=== PATIENT | male | born 1955 | race Hispanic/Latino ===

== ENCOUNTER 2017-11-19 21:31 | Inpatient (IN) | payer MEDICARE ==
[~2017-11-19] VITALS: Ht 160 cm; Wt 64.2 kg
[~2017-11-19 21:31] MED LIST: ACETAMINOPHEN325 M1 PO; ASPIRIN81 MG PO; CALAN SR240 MG PO; GLUCAGON EMERGEN1 MG PO; HUMALOG100 UNIT/3; Insulin Detemir SQ; Insulin Lispro SQ; LANTUS 3ML100 UNITS/; LEVETIRACETAM500 MG PO; LEVOTHYROXINE50 MCG PO; NYSTATIN100000 UNI PO; PANTOPRAZOLE SO40 MG PO; PRAVASTATIN SOD40 MG PO; SUCRALFATE1 GM PO
--- OUTSIDE RECORDS SUMMARY | 2017-11-19 21:34 | XMS REPORT ---
Author Author [facility] Address Unknown Phone Unavailable Care Team Providers Care Cash Manager Name Role Phone LUKAS STAUFFER Unavailable Unavailable Problems This patient has no known problems. Allergies, Adverse Reactions, Alerts This patient has no known allergies or adverse reactions. Medications This patient has no known medications. Results Test Description Test Time Test Comments Text Results Atomic Results Result Comments CHEST XRAY LINE PLACEMENT [place] [address] Patient Name: KENDY ROMO MR #: [id number] : 1955 Age/Sex: 62/M Req #: [id number] [facility] Physician: LUKAS STAUFFER MD Ordered by: LUKAS STAUFFER MD Report #: [id number] Location: [facility] Room/Bed: [facility] ___ Procedure: [id number] DX/CHEST XRAY LINE PLACEMENT Exam Date: 06/11/17 Exam Time: 1610 REPORT STATUS: Signed EXAM: XR CHEST 1 VIEW DATE: 06/11/2017 3:59 PM INDICATION: Line placement COMPARISON: 06/09/2017 FINDINGS: Lines and Tubes: Right PICC with tip overlying SVC. Heart and Mediastinum: Stable sternotomy wires. No cardiomegaly. Lungs and Pleura: Basilar atelectasis. Low lung volumes. No pneumothorax. Bones and Soft Tissues: No acute findings. IMPRESSION: 1. Right PICC placement. Signed by: Dr. Stanley Aiken MD on 06/11/2017 4:24 PM Dictated By: STANLEY AIKEN MD 23 Transcribed By: BETINA on 06/11/171623 COPY TO: LUKAS STAUFFER MD CHEST SINGLE (PORTABLE) [place] [address] Patient Name: KENDY ROMO MR #: [id number] : 1955 Age/Sex: 62/M Req #: [id number] Adm Physician: Ordered by: ALEN DELGADO MD Report # : [id number] Location: ER Room/Bed: Procedure: [id number] DX/CHEST SINGLE (PORTABLE) Exam Date: 06/09/17 Exam Time: 1652 REPORT STATUS: Signed PROCEDURE: A single AP view of the chest. COMPARISON: None. INDICATIONS: weakness, altered mental status FINDINGS: Lines/tubes: None. Lungs: The lungs are well inflated without mass or infiltrate. The pulmonary vascular markings are normal. Heart and mediastinum: The heart is normal in size. There are postoperative changes of the mediastinum with clips at aortic arch. Pleura: No pleural effusions, pleural thickening, or pleural-based mass. Bones: Median sternotomy wires are intact. There is no focal osseous lesions. IMPRESSION: No acute cardiopulmonary process. Dictated by: Miguel Craven M.D. on 06/09/2017 at 17:26 Electronically approved by: Miguel Craven M.D. on 06/09/2017 at 17:26 Dictated By: MIGUEL CRAVEN MD [id number] Transcribed By: CULLEN on 06/09/17 1726 COPY TO: ALEN DELGADO MD CT BRAIN WO [place] [address] Patient Name: KENDY ROMO MR #: [id number] : 1955 Age/Sex: 62/M Req #: [id number] Adm Physician: LUKAS STAUFFER MD Ordered by: ALEN DELGADO MD Report #: [id number] Location: [facility] Room/Bed: [place] [address] __ Procedure: [id number] CT/CT BRAIN WO Exam Date: 06/09/17 Exam Time: 1652 REPORT STATUS: Signed History:62-year-old male with weakness, acute encephalopathy Comparison studies:None Technique: Axial images were obtained from the skull base to the vertex. Coronal and sagittal images reconstructed from the axial data. Intravenous contrast: None Suboptimal evaluation due to streak artifacts particularly at the level of skull base and posterior fossa. Findings: Scalp/skull: No abnormalities. Extra-axial spaces: No masses. No fluid collections. Brain sulci: Moderately prominent. Ventricles: Mild compensatory dilatation. No hydrocephalus. Parenchyma: Age- indeterminate hypodensity involving the right inferior mesial lobe (series 2 image 4). Scattered hypodensities in the supratentorial white matter are small vessel ischemic changes. Old lacunar infarcts in the right subinsular region, the left lundberg radiata, left putamen, left thalamus. Sellar/suprasellar region: No abnormalities. Craniocervical junction: Patent foramen magnum. No Chiari one malformation. Incidental findings: Atherosclerotic calcifications in the carotid siphons . Mild ectasia of the basilar artery. Impression: Age-indeterminate insult in the right inferior mesial temporal lobe, favored to be chronic. Chronic findings: 1. Moderate generalized volume loss. 2. Old lacunar infarcts in the right subinsular region, left lundberg radiata, left putamen and left thalamus. Findings discussed with Dr. Cr via telephone at 530pm 06/09/17. A preliminary report was given by neuroradiology fellow at 5:45 PM on 2016. Signed by: Dr. Rupal Feliciano M.D. on 06/09/2017 8:02 PM Dictated By: RUPAL FELICIANO MD 01 Transcribed By: BETINA on 06/09/172001 COPY TO: ALEN DELGADO MD
[2017-11-19] MEDS ORDERED: SODIUM CHLORIDE 0.9% 1000ML 1,000 ML IV STA (22:17)
[2017-11-19 22:29] LABS: ABG HCO3 2 mmol/L (23-28); ABG PCO2 10 mmHg (41-51); ABG PH 6.99 (7.31-7.41); ABG PO2 151 mmHg (80-105)
[2017-11-19] MEDS ORDERED: SODIUM BICARBONATE 8.4% INJ 50 ML SYR IV STA (22:57)
[2017-11-19] MEDS ORDERED: INSULIN REGULAR, HUMAN 100 UNIT/1 ML 3ML VIAL IV STA (22:58)
[2017-11-19 22:59] LABS: BASOPHILS % 0.5 % (0.0-1.0); EOSINOPHILS % 0.1 % (0.0-6.0); HEMATOCRIT 29.8 % (38.2-49.6); HEMOGLOBIN 9.1 g/dL (14.0-18.0); LYMPHOCYTES # (AUTO) 0.9 (1.0-3.2); LYMPHOCYTES % 11.7 % (18.0-39.1); MEAN CORPUSCULAR HEMOGLOBIN 31.3 pg (28-32); MEAN CORPUSCULAR HGB CONC 30.5 g/dL (31-35); MEAN CORPUSCULAR VOLUME 102.4 fL (81-99); MONOCYTES # (AUTO) 0.9 (0.2-0.8); MONOCYTES % 12.5 % (4.4-11.3); NEUTROPHILS # (AUTO) 5.4 (2.1-6.9); NEUTROPHILS % 73.6 % (38.7-80.0); PLATELET COUNT 252 x10e3/uL (140-360); RED BLOOD COUNT 2.91 x10e6/uL (4.3-5.7)
[2017-11-19] MEDS: DEXTROSE 5%/0.45% SOD CHL 1,000 ML IV SCH (23:01)
[2017-11-19] MEDS ORDERED: SODIUM BICARBONATE 8.4% SYRING 100 ML ONE (23:06)
[2017-11-19] MEDS ORDERED: SODIUM CHLORIDE 0.9% 100 ML ONE (23:06)
[2017-11-19] MEDS ORDERED: INSULIN REGULAR, HUMAN 100 UNIT/1 ML 3ML VIAL ONE (23:06)
[2017-11-19 23:08] LABS: INR 1.18; PROTHROMBIN TIME 14.1 seconds (11.9-14.5)
[2017-11-19 23:09] LABS: PARTIAL THROMBOPLASTIN TIME 29.7 seconds (23.8-35.5)
--- NOTE | 2017-11-19 23:12 | Diagnostic Imaging Report ---
CHEST SINGLE (PORTABLE), 11/19/2017 10:44 PM Technique: CHEST SINGLE (PORTABLE) Comparison: 06/11/2017 Clinical history: \S\POST RIGHT SC CENTRAL LINE \[id number] \S\[id number] Findings: Stable appearance of the heart, mediastinum, lungs and pleural spaces status post median sternotomy. Broken superior sternotomy wire. Impression: 1. Lines/Tubes: Right central venous catheter tip overlies the cavoatrial junction. 2. No acute abnormality. No pneumothorax. Signed by: Dr Keely Barron MD on 11/19/2017 11:09 PM
[2017-11-19] MEDS ORDERED: SODIUM BICARBONATE 8.4% SYRING 50 ML ONE (23:13)
[2017-11-19] MEDS ORDERED: INSULIN DETEMIR 100 UNIT/ML PEN SQ PRN (23:15)
[2017-11-19] MEDS ORDERED: POTASSIUM CHLORIDE 20MEQ/100ML 200 ML IV PRN (23:15)
[2017-11-19] MEDS ORDERED: INSULIN REGULAR, HUMAN 3ML VL 1 UNIT in SODIUM CHLORIDE 0.9% 100 ML IV SCH ×2 (23:15)
[2017-11-19 23:19] LABS: ALANINE AMINOTRANSFERASE 30 IU/L (0-55); ALBUMIN 3.4 g/dL (3.5-5.0); ALBUMIN/GLOBULIN RATIO 1.3 (0.8-2.0); ALKALINE PHOSPHATASE 164 IU/L (40-150); BLOOD UREA NITROGEN 41 mg/dL (7-26); BUN/CREATININE RATIO 15 (6-25); CALCIUM 8.8 mg/dL (8.4-10.2); CHLORIDE 96 mmol/L (98-107); CREATINE KINASE 60 IU/L (30-200); CREATININE, SERUM 2.81 mg/dL (0.72-1.25); EST GLOMERULAR FILTRATION RATE 23 ML/MIN (60-); MAGNESIUM 1.8 MG/DL (1.3-2.1); SODIUM 121 mmol/L (136-145)
[2017-11-19] MEDS ORDERED: VANCOMYCIN 1GM/NS 250 ML 250 ML IV STA (23:20)
[2017-11-19 23:23] LABS: ANION GAP 27.1 mmol/L (8-16)
[2017-11-19 23:26] LABS: CARBON DIOXIDE < 5 mmol/L (22-29); POTASSIUM 7.1 mmol/L (3.5-5.1)
[2017-11-19] MEDS: CEFEPIME HCL 2 GM VIAL IV SCH (23:40)
[2017-11-19 23:41] LABS: GLUCOSE 949 mg/dL (74-118)
[2017-11-19] MEDS ORDERED: NOREPINEPHRINE INJ 4MG/4ML 8 MG in DEXTROSE 5% 250ML 250 ML IV PRN (23:45)
[2017-11-20] VITALS (56 sets, daily range): BP systolic 67–136; BP diastolic 42–132
[2017-11-20] MEDS ORDERED: PROMETHAZINE HCL (IM) 25 MG/ML VIAL IV PRN (00:30)
[2017-11-20] MEDS ORDERED: MORPHINE SULFATE 2 MG/ML SYR IV PRN (00:30)
[2017-11-20] MEDS ORDERED: FAMOTIDINE 20 MG/2 ML VIAL IV SCH (00:30)
[2017-11-20] MEDS: SODIUM CHLORIDE 0.9% 1000ML 1,000 ML IV SCH ×4 (01:00→22:45)
[2017-11-20 01:54] LABS: BILIRUBIN,URINE NEGATIVE (NEGATIVE); CLARITY,URINE CLEAR (CLEAR); COLOR,URINE YELLOW (YELLOW); KETONES,URINE 2+ (NEGATIVE); LEUKOCYTE ESTERASE ,URINE NEGATIVE (NEGATIVE); NITRITE,URINE NEGATIVE (NEGATIVE); PROTEIN,URINE DIPSTICK NEGATIVE (NEGATIVE); URINE UROBILINOGEN 0.2 mg/dL (0.2 - 1)
[2017-11-20 02:00] LABS: AMORPHOUS SEDIMENT,URINE MODERATE (FEW); BACTERIA,URINE RARE /HPF; EPITHELIAL CELLS,URINE FEW /LPF; RBC,URINE 0-5 /HPF (0-5); WBC,URINE (MAN) 0-5 /HPF (0-5)
[2017-11-20 03:09] LABS: ANION GAP 24.7 mmol/L (8-16); CALCIUM 8.1 mg/dL (8.4-10.2); MAGNESIUM 1.7 MG/DL (1.3-2.1); POTASSIUM 4.7 mmol/L (3.5-5.1)
[2017-11-20 03:10] LABS: CREATININE, SERUM 2.45 mg/dL (0.72-1.25)
[2017-11-20] MEDS ORDERED: SODIUM BICARBONATE 8.4% 50 ML VIAL IV STA ×2 (03:26→03:37)
[2017-11-20] MEDS ORDERED: MAGNESIUM SULF 1GRAM/DEXTROSE 100 ML IV ONE ×3 (03:28→19:39)
[2017-11-20] MEDS: MAGNESIUM SULF 1GRAM/DEXTROSE 100 ML IV PRN ×3 (03:29→19:34)
[2017-11-20] MEDS ORDERED: SODIUM BICARBONATE 8.4% SYRING 200 ML ONE (03:34)
[2017-11-20] MEDS: DEXTROSE 5%/0.45% SOD CHL 1,000 ML IV SCH (05:00)
[2017-11-20 06:10] LABS: BASOPHILS % 0.4 % (0.0-1.0); EOSINOPHILS % 0.2 % (0.0-6.0); HEMATOCRIT 20.6 % (38.2-49.6); HEMOGLOBIN 7.4 g/dL (14.0-18.0); LYMPHOCYTES # (AUTO) 0.5 (1.0-3.2); LYMPHOCYTES % 9.8 % (18.0-39.1); MEAN CORPUSCULAR HGB CONC 35.9 g/dL (31-35); MEAN CORPUSCULAR VOLUME 89.2 fL (81-99); MONOCYTES # (AUTO) 0.7 (0.2-0.8); MONOCYTES % 14.1 % (4.4-11.3); NEUTROPHILS # (AUTO) 3.8 (2.1-6.9); NEUTROPHILS % 74.9 % (38.7-80.0); PLATELET COUNT 147 x10e3/uL (140-360); RED BLOOD COUNT 2.31 x10e6/uL (4.3-5.7); RED CELL DISTRIBUTION WIDTH 13.2 % (11.7-14.4)
--- NOTE | 2017-11-20 06:21 | Diagnostic Imaging Report ---
CHEST SINGLE (PORTABLE), 11/20/2017 5:00 AM Technique: CHEST SINGLE (PORTABLE) Comparison: Previous day Clinical history: Diabetic ketoacidosis Findings: Stable appearance of the heart, mediastinum, lungs and pleural spaces status post median sternotomy. Broken superior sternotomy wire. Impression: 1. Lines/Tubes: Stable right central venous catheter near the cavoatrial junction. 2. No acute abnormality. No pneumothorax. Signed by: Dr Keely Barron MD on 11/20/2017 6:18 AM
[2017-11-20 06:24] LABS: INR 1.08; PROTHROMBIN TIME 13.2 seconds (11.9-14.5)
[2017-11-20 06:35] LABS: ALBUMIN 2.5 g/dL (3.5-5.0); ALBUMIN/GLOBULIN RATIO 1.3 (0.8-2.0); ANION GAP 17.2 mmol/L (8-16); CALCIUM 8.3 mg/dL (8.4-10.2); CREATININE, SERUM 2.13 mg/dL (0.72-1.25); MAGNESIUM 1.7 MG/DL (1.3-2.1); POTASSIUM 3.2 mmol/L (3.5-5.1)
[2017-11-20 06:50] LABS: CREATINE KINASE 91 IU/L (30-200)
[2017-11-20] MEDS ORDERED: ACETAMINOPHEN 325 MG TAB PO PRN (07:30)
[2017-11-20] MEDS: FAMOTIDINE 20 MG/2 ML VIAL IV SCH ×2 (08:37→21:01)
[2017-11-20] MEDS: ASPIRIN 81 MG CHEW TAB PO SCH (08:38)
[2017-11-20] MEDS: SUCRALFATE 1 GM TAB PO SCH ×4 (08:38→21:01)
[2017-11-20] MEDS: PANTOPRAZOLE SOD 40 MG TABEC PO SCH (08:39)
[2017-11-20] MEDS: LEVOTHYROXINE SODIUM 50 MCG TAB PO SCH (08:40)
[2017-11-20] MEDS ORDERED: NON-FORMULARY MEDICATION (Pravastatin Sodium 1 TAB) PO SCH (09:00)
[2017-11-20] MEDS: VERAPAMIL HCL 240 MG TABSR PO SCH (09:58)
[2017-11-20] MEDS: LEVETIRACETAM 500 MG TAB PO SCH ×2 (09:59→18:36)
--- NOTE | 2017-11-20 10:44 | History and Physical ---
HISTORY OF PRESENT ILLNESS: This is Mr. Cornell who presented to the ED with dyspnea and elevated glucose levels. The patient is with a history of dementia. Most of the history is gotten from the ED and patient is very forgetful. He was [facility]. Patient lives there for history of dementia and diabetes mellitus. Patient apparently had dyspnea in the morning with elevated glucose levels and was sent here for evaluation of DKA and was admitted for DKA. PAST MEDICAL HISTORY: History of hypertension, history of diabetes mellitus, history of Alzheimer's dementia, history of heart disease, and history of hyperlipidemia and reflux esophagitis and hypothyroidism. The patient also has a history of seizures. MEDICATIONS: Medicines he takes at home are aspirin 325 mg, aspirin 81 mg, Glucagon 1 mg, Keppra 500 mg, levothyroxine 50, Nystatin 100,000, pantoprazole 40, pravastatin 40, Carafate 1 gram, and verapamil 240. He takes Detemir insulin, which is Levemir 7 units and Lispro 6 units q.a.c. and at bedtime. PAST SURGICAL HISTORY: History of triple bypass, history of colectomy, and removal of ruptured appendix. No infections, however. FAMILY HISTORY: Positive for diabetes and hypertension. REVIEW OF SYSTEMS: Unable to get because of his dementia. Patient has very tangential thought processes and does talk out of context. PHYSICAL EXAMINATION GENERAL: Patient is alert and oriented x1, knows his name, knows his date of . VITAL SIGNS: Height: 63. Weight 127. Temperature is 98.2, blood pressure 119/72, and respirations 24. HEENT: Normocephalic, atraumatic. Very poor dental hygiene. Positive for swelling around the eyes and little facial puffiness. NECK: No JVD present. LUNGS: Clear to auscultation bilaterally. CV: S1 and S2 normal. Regular rate and rhythm. ABDOMEN: Slightly tender in the left lower quadrant, otherwise normal. EXTREMITIES: Positive for trace edema, otherwise normal. LABORATORY VALUES: Initial labs, white count 7.3, hemoglobin 9.1, hematocrit 29.8, and platelet count 258. Initial chemistry, sodium was 135, potassium 4.7, BUN of 37, creatinine of 2.45, glucose 467, calcium 8.5, magnesium 1.7, and bicarb 5. The patient after being given 4 amps of bicarb hovers around 217. Other than laboratory values, microbiology is pending, and cultures and blood cultures pending. Coags were all normal. Urine shows moderate bacteria, negative esterase and nitrites. DIAGNOSTIC DATA: Chest x-ray shows no acute abnormalities and no pneumothorax. ASSESSMENT AND PLAN: Diabetic ketoacidosis; the patient has been put on insulin and insulin protocol. We will go ahead and replace his magnesium, which is low. Patient is on Cefepime 2 grams q.12h. We will continue with that. He is on insulin 40 units in the evening, which is fine. We will continue monitoring him, replace the lytes as needed, continue with the protocol, and keep him in the ICU until his diabetic ketoacidosis has resolved. Further recommendations per clinical course. We will continue monitoring the patient in-house in ICU. FINAL DIAGNOSES 1. Diabetic ketoacidosis. 2. Coronary artery disease. 3. Hypertension. 4. Uncontrolled diabetes. 5. Dementia. We will restart his home medications, continue them, and possibly discharge him in 2 days back to the [facility]. Job#: [id number] HARRY
[2017-11-20 12:19] LABS: BAND NEUTROPHILS % (MANUAL) 7 %; LYMPHOCYTES % (MANUAL) 10 % (19-48); MONOCYTES % (MANUAL) 4 % (3.4-9.0); NEUTROPHILS % (MANUAL) 79 % (40-74); PLATELET ESTIMATE ADEQUATE; PLATELET MORPHOLOGY COMMENT NORMAL; RBC MORPHOLOGY COMMENT NORMAL
[2017-11-20 12:43] LABS: ANION GAP 13.9 mmol/L (8-16); CREATININE, SERUM 1.87 mg/dL (0.72-1.25); MAGNESIUM 1.7 MG/DL (1.3-2.1); POTASSIUM 3.9 mmol/L (3.5-5.1)
[2017-11-20 12:46] LABS: CREATINE KINASE 87 IU/L (30-200)
[2017-11-20] MEDS: CEFEPIME HCL 2 GM VIAL IV SCH (12:46)
[2017-11-20 19:02] LABS: ANION GAP 11.4 mmol/L (8-16); CREATININE, SERUM 1.87 mg/dL (0.72-1.25); MAGNESIUM 1.7 MG/DL (1.3-2.1); POTASSIUM 3.4 mmol/L (3.5-5.1)
[2017-11-20 19:14] LABS: CREATINE KINASE 85 IU/L (30-200)
[2017-11-20] MEDS: PRAVASTATIN 20 MG TAB PO SCH (21:01)
[2017-11-20] MEDS ORDERED: INSULIN REGULAR, HUMAN 3ML VL 100 UNIT in SODIUM CHLORIDE 0.9% 100 ML IV SCH ×2 (23:15)
[2017-11-21] VITALS (29 sets, daily range): BP systolic 86–147; BP diastolic 51–85
[2017-11-21 00:49] LABS: ANION GAP 10.2 mmol/L (8-16); CALCIUM 7.7 mg/dL (8.4-10.2); CREATININE, SERUM 1.7 mg/dL (0.72-1.25); MAGNESIUM 1.9 MG/DL (1.3-2.1); POTASSIUM 3.2 mmol/L (3.5-5.1)
[2017-11-21] MEDS: CEFEPIME HCL 2 GM VIAL IV SCH ×3 (01:08→23:33)
[2017-11-21 04:54] LABS: BASOPHILS % 0.7 % (0.0-1.0); EOSINOPHILS # (AUTO) 0.1 (0.0-0.4); EOSINOPHILS % 2.4 % (0.0-6.0); LYMPHOCYTES # (AUTO) 0.7 (1.0-3.2); LYMPHOCYTES % 14.4 % (18.0-39.1); MEAN CORPUSCULAR HEMOGLOBIN 31.9 pg (28-32); MEAN CORPUSCULAR HGB CONC 34.5 g/dL (31-35); MEAN CORPUSCULAR VOLUME 92.6 fL (81-99); MONOCYTES # (AUTO) 0.5 (0.2-0.8); MONOCYTES % 10.1 % (4.4-11.3); NEUTROPHILS # (AUTO) 3.3 (2.1-6.9); NEUTROPHILS % 72.2 % (38.7-80.0); PLATELET COUNT 156 x10e3/uL (140-360); RED BLOOD COUNT 2.16 x10e6/uL (4.3-5.7); RED CELL DISTRIBUTION WIDTH 13.8 % (11.7-14.4)
[2017-11-21 05:02] LABS: HEMOGLOBIN 6.9 g/dL (14.0-18.0)
[2017-11-21 05:21] LABS: ALBUMIN 2.2 g/dL (3.5-5.0); ALBUMIN/GLOBULIN RATIO 1.2 (0.8-2.0); ANION GAP 9.2 mmol/L (8-16); CALCIUM 7.6 mg/dL (8.4-10.2); CREATININE, SERUM 1.64 mg/dL (0.72-1.25); MAGNESIUM 1.8 MG/DL (1.3-2.1); POTASSIUM 3.2 mmol/L (3.5-5.1)
[2017-11-21] MEDS ORDERED: SODIUM CHLORIDE 0.9% 250ML 250 ML IV ONE ×2 (07:30→16:45)
[2017-11-21] MEDS ORDERED: GUAIFENESIN 200 MG/10 ML UDC PO PRN (07:30)
--- NOTE | 2017-11-21 08:16 | Diagnostic Imaging Report ---
PROCEDURE: A single AP view of the chest. COMPARISON: Portable chest 11/20/2017. INDICATIONS: COUGH FINDINGS: Lines/tubes: Right subclavian central venous catheter with tip projecting over the expected region of the superior vena cava. Lungs: The lungs are well inflated and clear. There is no evidence of pneumonia or pulmonary edema. Pleura: There is no pleural effusion or pneumothorax. Heart and mediastinum: The heart and the mediastinum are unremarkable. Bones: Degenerative changes of the thoracic spine. Median sternotomy wires. IMPRESSION: No acute radiographic abnormality. Dictated by: Moncho Golden M.D. on 11/21/2017 at 8:17 Electronically approved by: Moncho Golden M.D. on 11/21/2017 at 8:17
[2017-11-21] MEDS: SUCRALFATE 1 GM TAB PO SCH ×4 (08:40→21:05)
[2017-11-21] MEDS: ASPIRIN 81 MG CHEW TAB PO SCH (08:40)
[2017-11-21] MEDS: LEVETIRACETAM 500 MG TAB PO SCH ×2 (08:40→17:18)
[2017-11-21] MEDS: FAMOTIDINE 20 MG/2 ML VIAL IV SCH ×2 (08:40→21:05)
[2017-11-21] MEDS: PANTOPRAZOLE SOD 40 MG TABEC PO SCH (08:41)
[2017-11-21] MEDS: LEVOTHYROXINE SODIUM 50 MCG TAB PO SCH (08:41)
[2017-11-21] MEDS: VERAPAMIL HCL 240 MG TABSR PO SCH (08:41)
[2017-11-21 08:57] LABS: % IRON SATURATION 26 % (15-50); IRON 55 ug/dL (65-175); TOTAL IRON BINDING CAPACITY 210 ug/dL (261-478); TRANSFERRIN 150 mg/dL (174-364)
[2017-11-21] MEDS ORDERED: SODIUM CHLORIDE 0.9% 250ML 250 ML ONE (12:00)
[2017-11-21] MEDS: SODIUM CHLORIDE 0.9% 1000ML 1,000 ML IV SCH (12:19)
[2017-11-21] MEDS: INSULIN LISPRO 100 UNIT/1 ML 3ML VIAL SQ SCH ×2 (18:25→21:42)
[2017-11-21 18:32] LABS: % IRON SATURATION 92 % (15-50); IRON 238 ug/dL (65-175); TOTAL IRON BINDING CAPACITY 258 ug/dL (261-478); TRANSFERRIN 184 mg/dL (174-364)
[2017-11-21] MEDS: PRAVASTATIN 20 MG TAB PO SCH (21:05)
[2017-11-22] VITALS: BP 118/64
[2017-11-22] MEDS ORDERED: PEG (High)/E-LYTE SOLN 4,000 ML BTL PO ONE (01:45)
[2017-11-22] MEDS: SODIUM CHLORIDE 0.9% 1000ML 1,000 ML IV SCH ×2 (04:54→22:52)
[2017-11-22] MEDS: LEVOTHYROXINE SODIUM 75 MCG TAB PO SCH (06:05)
[2017-11-22 07:22] LABS: EOSINOPHILS # (AUTO) 0.2 (0.0-0.4); EOSINOPHILS % 4.5 % (0.0-6.0); HEMATOCRIT 28.9 % (38.2-49.6); HEMOGLOBIN 9.9 g/dL (14.0-18.0); LYMPHOCYTES # (AUTO) 0.7 (1.0-3.2); LYMPHOCYTES % 16.8 % (18.0-39.1); MEAN CORPUSCULAR HEMOGLOBIN 30.7 pg (28-32); MEAN CORPUSCULAR HGB CONC 34.3 g/dL (31-35); MEAN CORPUSCULAR VOLUME 89.5 fL (81-99); MONOCYTES # (AUTO) 0.5 (0.2-0.8); MONOCYTES % 12.6 % (4.4-11.3); NEUTROPHILS # (AUTO) 2.6 (2.1-6.9); NEUTROPHILS % 64.8 % (38.7-80.0); PLATELET COUNT 155 x10e3/uL (140-360); RED BLOOD COUNT 3.23 x10e6/uL (4.3-5.7); RED CELL DISTRIBUTION WIDTH 15.1 % (11.7-14.4)
[2017-11-22 07:43] LABS: ALBUMIN 2.4 g/dL (3.5-5.0); ALBUMIN/GLOBULIN RATIO 1.1 (0.8-2.0); ANION GAP 11.4 mmol/L (8-16); CALCIUM 7.9 mg/dL (8.4-10.2); CREATININE, SERUM 1.44 mg/dL (0.72-1.25); POTASSIUM 4.4 mmol/L (3.5-5.1)
[2017-11-22 07:47] VITALS: BP 137/66
[2017-11-22 08:29] LABS: FOLATE 10.4 ng/mL (7.0-15.4)
[2017-11-22] MEDS: SUCRALFATE 1 GM TAB PO SCH ×4 (09:11→21:28)
[2017-11-22] MEDS: LEVETIRACETAM 500 MG TAB PO SCH ×2 (09:11→17:14)
[2017-11-22] MEDS: VERAPAMIL HCL 240 MG TABSR PO SCH (09:15)
[2017-11-22] MEDS: FAMOTIDINE 20 MG/2 ML VIAL IV SCH (09:17)
[2017-11-22] MEDS: PANTOPRAZOLE SOD 40 MG TABEC PO SCH (09:17)
[2017-11-22] MEDS: ASPIRIN 81 MG CHEW TAB PO SCH (09:17)
[2017-11-22] MEDS: INSULIN DETEMIR 100 UNIT/ML PEN SQ SCH ×2 (09:18→21:28)
[2017-11-22] MEDS: INSULIN LISPRO 100 UNIT/1 ML 3ML VIAL SQ SCH ×4 (09:18→21:00)
[2017-11-22] MEDS ORDERED: CITRATE OF MAGNESIA 300ML BOTTLE PO ONE ×2 (11:15→23:30)
[2017-11-22] MEDS: CEFEPIME HCL 2 GM VIAL IV SCH ×2 (11:39→22:51)
[2017-11-22 12:00] VITALS: BP 111/69
--- NOTE | 2017-11-22 13:39 | Diagnostic Imaging Report ---
PROCEDURE: CT ABDOMEN AND PELVIS WITH CONTRAST TECHNIQUE: The abdomen and pelvis were scanned utilizing a multidetector helical scanner from the diaphragm to the lesser trochanter after the IV administration of 100 cc of Isovue 370 and the oral administration of water. Coronal and sagittal multiplanar reformations were obtained. DLP: 187.00 mGy-cm COMPARISON: None. INDICATIONS: Anemia FINDINGS: LOWER THORAX: Tiny bilateral pleural effusions. HEPATOBILIARY: No focal hepatic lesions. Hepatic steatosis. No biliary ductal dilatation. SPLEEN: No splenomegaly. PANCREAS: No focal masses or ductal dilatation. ADRENALS: No adrenal nodules. KIDNEYS/URETERS: No hydronephrosis, stones, or solid mass lesions. Low-density lesion in the interpolar region of the left kidney is too small to characterize but likely a cyst. PELVIC ORGANS/BLADDER: Unremarkable. PERITONEUM / RETROPERITONEUM: No free air or fluid. Metallic clips in the right side of the abdomen. LYMPH NODES: No lymphadenopathy. VESSELS: Unremarkable. GI TRACT: No distention or wall thickening. Evidence of prior partial colectomy. BONES AND SOFT TISSUES: Unremarkable. IMPRESSION: 1. Tiny bilateral pleural effusions. 2. Hepatic steatosis without evidence of an acute abnormality. Felipe Lamb D.O. Dictated by: Felipe Lamb D.O. on 11/22/2017 at 13:41 Electronically approved by: Felipe Lamb D.O. on 11/22/2017 at 13:41
[2017-11-22] MEDS ORDERED: SODIUM CHLORIDE 0.9% 50ML 50 ML ONE (13:40)
[2017-11-22] MEDS ORDERED: IOPAMIDOL 370 MG/ML 200 ML INFUS..BTL INJ ONE (13:40)
[2017-11-22 16:07] VITALS: BP 109/67
[2017-11-22] MEDS: FAMOTIDINE 20 MG TAB PO SCH (17:14)
[2017-11-22 20:00] VITALS: BP 118/71
[2017-11-22 20:05] VITALS: BP 118/71
[2017-11-22] MEDS: PRAVASTATIN 20 MG TAB PO SCH (21:28)
[2017-11-23] VITALS (8 sets, daily range): BP systolic 111–139; BP diastolic 69–79
[2017-11-23] MEDS ORDERED: CYANOCOBALAMIN INJ 1,000 MCG/ML VIAL IM SCH
[2017-11-23] MEDS ORDERED: CYANOCOBALAMIN INJ 1,000 MCG/ML VIAL IM ONE
[2017-11-23] MEDS ORDERED: DEXTROSE 50% SYRINGE 50 ML IV ONE (05:20)
[2017-11-23] MEDS: LEVOTHYROXINE SODIUM 75 MCG TAB PO SCH (06:20)
[2017-11-23 06:52] LABS: BASOPHILS % 0.4 % (0.0-1.0); EOSINOPHILS % 0.8 % (0.0-6.0); HEMATOCRIT 31.8 % (38.2-49.6); HEMOGLOBIN 10.9 g/dL (14.0-18.0); LYMPHOCYTES # (AUTO) 0.5 (1.0-3.2); LYMPHOCYTES % 9.4 % (18.0-39.1); MEAN CORPUSCULAR HGB CONC 34.3 g/dL (31-35); MEAN CORPUSCULAR VOLUME 90.3 fL (81-99); MONOCYTES # (AUTO) 0.5 (0.2-0.8); PLATELET COUNT 168 x10e3/uL (140-360); RED BLOOD COUNT 3.52 x10e6/uL (4.3-5.7)
[2017-11-23 07:17] LABS: ANION GAP 10.9 mmol/L (8-16); CALCIUM 8.7 mg/dL (8.4-10.2); CREATININE, SERUM 1.33 mg/dL (0.72-1.25); POTASSIUM 3.9 mmol/L (3.5-5.1)
[2017-11-23] MEDS: INSULIN LISPRO 100 UNIT/1 ML 3ML VIAL SQ SCH ×4 (07:30→21:55)
[2017-11-23] MEDS: FAMOTIDINE 20 MG TAB PO SCH ×2 (09:14→18:09)
[2017-11-23] MEDS: SUCRALFATE 1 GM TAB PO SCH ×4 (09:14→20:50)
[2017-11-23] MEDS: ASPIRIN 81 MG CHEW TAB PO SCH (09:14)
[2017-11-23] MEDS: VERAPAMIL HCL 240 MG TABSR PO SCH (09:15)
[2017-11-23] MEDS: LEVETIRACETAM 500 MG TAB PO SCH ×2 (09:15→18:09)
[2017-11-23] MEDS: PANTOPRAZOLE SOD 40 MG TABEC PO SCH (09:15)
[2017-11-23] MEDS: CEFEPIME HCL 2 GM VIAL IV SCH (11:17)
[2017-11-23] MEDS: SODIUM CHLORIDE 0.9% 1000ML 1,000 ML IV SCH (15:22)
[2017-11-23] MEDS ORDERED: BISACODYL 5 MG TAB EC PO ONE (20:00)
[2017-11-23] MEDS ORDERED: DEXTROSE 5%/0.45% SOD CHL 1,000 ML IV SCH (20:00)
[2017-11-23] MEDS: PRAVASTATIN 20 MG TAB PO SCH (20:50)
[2017-11-23] MEDS ORDERED: CITRATE OF MAGNESIA 300ML BOTTLE PO ONE (23:00)
[2017-11-24] VITALS (8 sets, daily range): BP systolic 106–152; BP diastolic 61–99
[2017-11-24] MEDS: CEFEPIME HCL 2 GM VIAL IV SCH (00:31)
[2017-11-24] MEDS ORDERED: BISACODYL 5 MG TAB EC PO ONE ×4 (01:15→02:44)
[2017-11-24] MEDS: BISACODYL 5 MG TAB EC PO SCH ×3 (01:30→02:41)
[2017-11-24] MEDS: LEVOTHYROXINE SODIUM 75 MCG TAB PO SCH (05:30)
[2017-11-24] MEDS ORDERED: Insulin Detemir SQ (06:42)
[2017-11-24 06:48] LABS: ANION GAP 10.4 mmol/L (8-16); BLOOD UREA NITROGEN 7 mg/dL (7-26); BUN/CREATININE RATIO 6 (6-25); CALCIUM 8.2 mg/dL (8.4-10.2); CARBON DIOXIDE 22 mmol/L (22-29); CHLORIDE 106 mmol/L (98-107); CREATININE, SERUM 1.12 mg/dL (0.72-1.25); EST GLOMERULAR FILTRATION RATE > 60 ML/MIN (60-); GLUCOSE 216 mg/dL (74-118); POTASSIUM 3.4 mmol/L (3.5-5.1); SODIUM 135 mmol/L (136-145)
[2017-11-24] MEDS: FAMOTIDINE 20 MG TAB PO SCH (07:30)
[2017-11-24] MEDS: SUCRALFATE 1 GM TAB PO SCH ×3 (07:30→16:30)
[2017-11-24] MEDS: INSULIN LISPRO 100 UNIT/1 ML 3ML VIAL SQ SCH ×3 (07:30→16:30)
[2017-11-24] MEDS: LEVETIRACETAM 500 MG TAB PO SCH (09:00)
[2017-11-24] MEDS: VERAPAMIL HCL 240 MG TABSR PO SCH (09:00)
[2017-11-24] MEDS: ASPIRIN 81 MG CHEW TAB PO SCH (09:00)
[2017-11-24] MEDS: PANTOPRAZOLE SOD 40 MG TABEC PO SCH (09:00)
[2017-11-24] MEDS ORDERED: INSULIN REGULAR, HUMAN 100 UNIT/1 ML 3ML VIAL ONE (14:59)
[2017-11-24] MEDS ORDERED: FENTANYL CITRATE/PF 100MCG/2 ML INJ ONE (17:07)
[2017-11-24] MEDS ORDERED: MIDAZOLAM HCL 2 MG/2 ML VIAL ONE (17:07)
[2017-11-24] MEDS ORDERED: PROPOFOL IV EMULSION 10 MG/ML 50 ML VIAL ONE (17:46)
[2017-11-24] MEDS ORDERED: INSULIN DETEMIR 100 UNIT/ML PEN SQ SCH (21:00)
--- NOTE | 2017-11-25 09:37 | Operative Report ---
DATE OF PROCEDURE: November 24, 2017 REFERRING PHYSICIAN: Dr. Verónica Medina. PROCEDURE PERFORMED: 1. Esophagogastroduodenoscopy with biopsies. 2. Colonoscopy with polypectomy and biopsies. INDICATIONS FOR ESOPHAGOGASTRODUODENOSCOPY: Anemia. INDICATIONS FOR COLONOSCOPY: Anemia. MEDICATION: Patient was done under MAC. Please see anesthesiologist's note. PROCEDURE: With patient in the left lateral decubitus position, the flexible fiberoptic Olympus gastroscope was introduced into the esophagus under direct visualization without any difficulty. There was some patchy erythema noted in the distal esophagus. The scope was then advanced with ease into the stomach. Mucosa overlying the antrum and the body revealed some patchy intense erythema and moderate edema, and biopsies were obtained and sent to stain for H. pylori. Pylorus appeared to be of normal contour and shape, was intubated with ease, and the scope was advanced all the way to the 2nd portion of the duodenum. The scope was then withdrawn slowly. Mucosa overlying the proximal 2nd portion and the duodenal bulb appeared to be within normal limits. The scope was then withdrawn back into the stomach and retroflexed, and the mucosa overlying the fundus and the cardia appeared to be within normal limits. The scope was then straightened out. The stomach was decompressed. The scope was subsequently withdrawn. Patient tolerated the procedure well. IMPRESSION: 1. Distal esophagitis, mild. 2. Gastritis biopsied. Biopsies sent to stain for H. pylori. PLAN: Follow up histology. Initiate Protonix 40 mg 1 p.o. q.a.m. a.c. Patient was then turned around and after adequate lubrication of the anal canal, a flexible fiberoptic Olympus colonoscope was inserted into the rectum with ease and advanced all the way to the ileocolic anastomosis. The anastomosis appeared to be intact. The scope was then withdrawn slowly. Mucosa overlying the transverse colon appeared to be within normal limits. There were some patchy areas of erythema and mild to moderate edema noted in the distal descending and sigmoid colon. Biopsies were obtained. Two polyps were hot biopsied from the sigmoid colon. The rectum grossly appeared to be within normal limits. The scope was then retroflexed into the distal rectum. Small internal hemorrhoids were noted, none of which was actively bleeding. Also, there was a small hypertrophied anal papilla. The scope was then straightened out. It was subsequently withdrawn. Patient tolerated the procedure well. IMPRESSION: 1. Ileocolic anastomosis intact. 2. Sigmoid colon polyps times 2 hot biopsied. 3. Small hypertrophied anal papilla. 4. Small internal hemorrhoids, none actively bleeding. PLAN: Follow up histology. Patient might benefit from a small-bowel series to complete workup. Patient might benefit from a followup colonoscopy in 3 to 5 years. Job#: [id number] EV cc:VERÓNICA MEDINA MD
== END 2017-11-24 20:30 | DRG 638 ==
LOC: ER 21:31 → ERHOLD 11-20 01:02 → ICU 11-20 01:06 → MED/SURG 11-21 14:53
PROVIDERS: ADMIT Family Medicine; ATTEND Family Medicine
PROC: 02HV33Z Insertion of Infusion Device into Superior Vena Cava, Percutaneous Approach (ICD-10-PCS; 2017-11-20)
PROC: 30243N1 Transfusion of Nonautologous Red Blood Cells into Central Vein, Percutaneous Approach (ICD-10-PCS; 2017-11-20)
PROC: 0DB78ZX Excision of Stomach, Pylorus, Via Natural or Artificial Opening Endoscopic, Diagnostic (ICD-10-PCS; principal; 2017-11-24 15:57)
PROC: 0DB88ZX Excision of Small Intestine, Via Natural or Artificial Opening Endoscopic, Diagnostic (ICD-10-PCS; 2017-11-24 15:57)
PROC: 0DBN8ZX Excision of Sigmoid Colon, Via Natural or Artificial Opening Endoscopic, Diagnostic (ICD-10-PCS; 2017-11-24 15:57)
DX: E11.10 Type 2 diabetes mellitus with ketoacidosis without coma (principal); E87.1 Hypo-osmolality and hyponatremia; I25.10 Atherosclerotic heart disease of native coronary artery without angina pectoris; G30.9 Alzheimer's disease, unspecified; F02.80 Dementia in other diseases classified elsewhere, unspecified severity, without behavioral disturbance, psychotic disturbance, mood disturbance, and anxiety; G40.909 Epilepsy, unspecified, not intractable, without status epilepticus; I10 Essential (primary) hypertension; E87.5 Hyperkalemia; K29.70 Gastritis, unspecified, without bleeding; K20.9 Esophagitis, unspecified; D12.5 Benign neoplasm of sigmoid colon; D12.9 Benign neoplasm of anus and anal canal; K64.8 Other hemorrhoids; Z95.1 Presence of aortocoronary bypass graft; E03.9 Hypothyroidism, unspecified; Z79.52 Long term (current) use of systemic steroids; E83.42 Hypomagnesemia; D50.0 Iron deficiency anemia secondary to blood loss (chronic); Z79.4 Long term (current) use of insulin
CPT/HCPCS: 36415; 36555; 36600; 43239; 45380; 45384; 51700; 71045; 74177; 80048; 80053; 80061; 81001; 82140; 82270; 82550; 82553; 82607; 82728; 82746; 82805; 82948; 83540; 83605; 83735; 84443; 84466; 84484; 85025; 85045; 85610; 85730; 86850; 86900; 86920; 87040; 87086; 88305; 88312; 93005; 99284; J0692; J2250; J3420; J3475; J7030; J7050; J7799; P9016; Q9967